=== PATIENT | female | born 2000 | race Caucasian/White ===

== ENCOUNTER 2019-04-05 16:05 | Emergency (ER) | payer OTHER ==
[~2019-04-05] VITALS: Ht 167.6 cm; Wt 75.7 kg
[2019-04-05 16:14] VITALS: BP 125/52
--- NOTE | 2019-04-05 16:17 | NUR ---
PT TAKEN TO BED 12.
--- NOTE | 2019-04-05 16:19 | NUR ---
PT AMBULATED TO BED 12
--- NOTE | 2019-04-05 16:30 | NUR ---
PT C/O VAGINAL BLEEDING X 1 MONTH. BLEEDING HAS BEEN VARYING FROM LIGHT, SPOTTING, HEAVY BUT CONTINUOUS FOR THE LAST MONTH. LMP 02/28/19 AND HAS NOT STOPPED BLEEDING SINCE START OF PERIOD. PT REPORTS "LIGHT RED AND THIN" DISCHARGE. PT STATES THAT SHE HAD A URINE PREG TEST 3 WEEKS AGO, WITH NEGATIVE RESULT. REPORTS INT RLQ PAIN, BUT NO PAIN AT THIS TIME. HAS BEEN FEELING NAUSEATED AND WEAK. PT DENIES SOB, CP, AND FEVER AT THIS TIME. VSRian. TO SEE PT. HX- NONE RX- NONE NKA
[2019-04-05 17:03] LABS: BASOPHILS % (AUTO) 0.5 % (0.0-2.0); EOSINOPHILS # (AUTO) 0.1 K/uL (0-0.4); EOSINOPHILS % (AUTO) 1.5 % (0.0-4.0); HEMATOCRIT 35.8 % (36-48); HEMOGLOBIN 11.9 g/dL (12.0-16.0); LYMPHOCYTES # (AUTO) 2.5 K/uL (2.5-16.5); LYMPHOCYTES % (AUTO) 27.9 % (20.5-51.1); MEAN CORPUSCULAR HEMOGLOBIN 31 pg (27-31); MEAN CORPUSCULAR HGB CONC 33 g/dL (33-37); MEAN CORPUSCULAR VOLUME 91.7 fL (80-94); MONOCYTES # (AUTO) 0.7 K/uL (0.8-1.0); MONOCYTES % (AUTO) 7.9 % (1.7-9.3); NEUTROPHILS # (AUTO) 5.6 K/uL (1.8-7.7); NEUTROPHILS % (AUTO) 62.2 % (42.2-75.2); PLATELET COUNT (AUTO) 301 K/uL (140-450); RED CELL DISTRIBUTION WIDTH 13.7 % (11.6-13.7)
[2019-04-05 17:16] LABS: ANION GAP 13.3 (8-16); CARBON DIOXIDE 26.5 mmol/L (21-32); CREATININE 0.8 mg/dL (0.6-1.3); POTASSIUM 3.8 mmol/L (3.5-5.1)
[2019-04-05 17:20] LABS: APPEARANCE,URINE CLEAR (CLEAR); BILIRUBIN,URINE NEGATIVE (NEGATIVE); BLOOD, URINE 3+ (NEGATIVE); COLOR,URINE YELLOW (YELLOW); LEUKOCYTE ESTERASE ,URINE TRACE (NEGATIVE); NITRITE, URINE POSITIVE (NEGATIVE); UGLUCOSE NEGATIVE (NEGATIVE)
[2019-04-05 17:22] LABS: TOTAL BILIRUBIN 0.3 mg/dL (0.0-1.0)
[2019-04-05 17:26] LABS: PROTHROMBIN TIME 10.5 secs (10.8-13.4)
[2019-04-05 17:59] LABS: RBC,URINE TOO NUMEROUS TO COUN /HPF (0-5); WBC,URINE 0-5 /HPF (0-5)
--- NOTE | 2019-04-05 18:00 | NUR ---
PT RESTING IN BED.
[2019-04-05] MEDS ORDERED: SULFAMETH/TRIMETH DS 800/160MG 1 TAB PO ONE (18:50)
[2019-04-05 18:57] VITALS: BP 104/52
== END 2019-04-05 18:57 | disposition home or self-care (01) ==
LOC: MED 16:05
DX: N39.0 Urinary tract infection, site not specified (principal)
CPT/HCPCS: 36415; 76830; 80053; 81001; 81025; 84702; 85025; 85610; 85730; 99284; Q0092

== ENCOUNTER 2019-08-03 00:09 | Emergency (ER) | payer OTHER ==
[~2019-08-03] VITALS: Ht 167.6 cm; Wt 75.7 kg
[2019-08-03 00:20] VITALS: BP 113/60
--- NOTE | 2019-08-03 00:23 | NUR ---
to lobby a/w bed ambulatory
--- NOTE | 2019-08-03 01:03 | NUR ---
18 yo female CO VAGINAL DISCHARGE FOR 1W. PT STATES THAT THE DISCHARGE IS BROWN IN COLOR. PT IS NOT TAKING CONTROL PILLS. HCG WAS NEGATIVE. LMP WAS APPROX 4 MONTHS AGO. PT IS LAYING IN BED IN A GOWN WITH ONE SIDE RAIL UP.
--- NOTE | 2019-08-03 02:46 | NUR ---
DR POON AT BEDSIDE.
--- NOTE | 2019-08-03 02:56 | NUR ---
ERMD AT BEDSIDE PERFORMING PELVIC EXAM
[2019-08-03] MEDS ORDERED: AZITHROMYCIN 1,000 MG in DEXTROSE 5% 500 ML IV ONE (03:05)
[2019-08-03] MEDS ORDERED: cefTRIAXone 1,000 MG in LIDOCAINE MPF 1% 2.1 ML IM ONE (03:05)
[2019-08-03] MEDS ORDERED: AZTREONAM 1,000 MG VIAL ONE (03:22)
[2019-08-03] MEDS ORDERED: LIDOCAINE MPF 1% 5 ML ONE (03:23)
[2019-08-03] MEDS ORDERED: cefTRIAXone 1,000 MG VIAL ONE (03:23)
[2019-08-03] MEDS ORDERED: AZITHROMYCIN 500 MG INJ VIAL IV ONE (03:26)
[2019-08-03] MEDS ORDERED: AZITHROMYCIN 250 MG TAB ONE (03:34)
[2019-08-03] MEDS ORDERED: AZITHROMYCIN 250 MG TAB PO ONE (03:35)
[2019-08-03 04:06] VITALS: BP 113/60
--- NOTE | 2019-08-03 04:07 | NUR ---
Patient discharged with v/s stable. Written and verbal after care instructions given and explained. Patient verbalized understanding. Ambulatory with steady gait. All questions addressed prior to discharge. Advised to follow up with PMD.
--- NOTE | 2019-08-04 03:22 | NUR ---
wrong medication pulled from [facility]. Medication wasted and right medication drawn.
[2019-08-05 06:08] LABS: CHLAMYDIA TRACHOMATIS AMP DNA Negative (Negative)
== END 2019-08-03 04:07 | disposition home or self-care (01) ==
LOC: MED 00:09
DX: A64 Unspecified sexually transmitted disease (principal)
CPT/HCPCS: 36415; 81002; 81025; 87491; 96372; 99283; J0456; J0696; J2001; J3490